=== PATIENT | female | born 1980 ===

== ENCOUNTER 2018-04-14 14:27 | Inpatient (IN) | payer OTHER ==
[2018-04-14] MEDS ORDERED: Albuterol-Ipratrop 3 mg / 0.5 (3 ml) UD ONE ×2 (14:35→15:16)
[2018-04-14] MEDS ORDERED: Albuterol-Ipratrop 3 mg / 0.5 (3 ml) UD INH STA (14:39)
[2018-04-14] MEDS ORDERED: Sodium Chloride 0.9% 1,000 ML IV ONE (14:41)
[2018-04-14] MEDS ORDERED: MethylPREDNISolone 40 mg Vial IVP STA (14:42)
--- NOTE | 2018-04-14 14:56 | C.PDOC ---
History Of Present Illness 37-year-old female, presents to the emergency department with complaints of cough, nasal, congestion, generalized body aches and wheezing since yesterday. Patient has a Hx of asthma and states he ran out of his medication. Denies nausea/vomiting, fever, chills, chest pain or shortness of breath. No other complaints at this time. Time Seen by Provider: 04/14/18 14:37 Chief Complaint (Nursing): Cough, Cold, Congestion History Per: Patient History/Exam Limitations: no limitations Current Symptoms Are (Timing): Still Present Past Medical History Reviewed: Historical Data, Nursing Documentation, Vital Signs Vital Signs: Last Vital Signs Temp 98.4 F 04/14/18 16:13 Pulse 103 H 04/14/18 16:13 Resp 18 04/14/18 16:13 BP 114/77 04/14/18 16:13 Pulse Ox 95 04/14/18 16:13 - Medical History PMH: Asthma Family History: States: No Known Family Hx - Social History Hx Tobacco Use: Yes Hx Alcohol Use: No Hx Substance Use: No - Immunization History Hx Tetanus Toxoid Vaccination: Yes Hx Influenza Vaccination: No Hx Pneumococcal Vaccination: No Review Of Systems Constitutional: Positive for: Malaise. Negative for: Fever, Chills ENT: Positive for: Nose Congestion Cardiovascular: Negative for: Chest Pain Respiratory: Positive for: Cough, Wheezing. Negative for: Shortness of Breath Gastrointestinal: Negative for: Nausea, Vomiting Musculoskeletal: Negative for: Back Pain Skin: Negative for: Rash Neurological: Negative for: Weakness, Numbness, Headache, Dizziness Physical Exam - Physical Exam Appears: Non-toxic, No Acute Distress Skin: Normal Color, Warm, Dry, No Rash Head: Normacephalic Eye(s): bilateral: PERRL Nose: Normal Oral Mucosa: Moist Lips: Normal Appearing Neck: Normal ROM Chest: Symmetrical Cardiovascular: Rhythm Regular, No Murmur Respiratory: Normal Breath Sounds, No Accessory Muscle Use Extremity: Normal ROM, No Deformity, No Swelling Neurological/Psych: Oriented x3, Normal Speech ED Course And Treatment - Laboratory Results Result Diagrams: 04/14/18 14:56 04/14/18 14:56 O2 Sat by Pulse Oximetry: 94 Pulse Ox Interpretation: Abnormal Progress Note: Bloodwork, Chest X-Ray and Influenza AB ordered and reviewed. Pt treated with Duonebs, Solumedrol and IVFs. Medical Decision Making Medical Decision Making: asthma- labs imging pendign, nebs steriods pt reassesed after iv steriods, persistent wheezing, accepted by dr robledo for admission. Disposition - Disposition Disposition: HOSPITALIZED Disposition Time: 02:00 Condition: STABLE - Clinical Impression Clinical Impression: Asthma - Scribe Statement The provider has reviewed the documentation as recorded by the Scribe (Ricci Graves) All medical record entries made by the Scribe were at my direction and personally dictated by me. I have reviewed the chart and agree that the record accurately reflects my personal performance of the history, physical exam, medical decision making, and the department course for this patient. I have also personally directed, reviewed, and agree with the discharge instructions and disposition. Decision To Admit - Pt Status Changed To: Hospital Disposition Of: Inpatient - Admit Certification Admit to Inpatient:: After my assessment, the patient will require hospitalization for at least two midnights. This is because of the severity of symptoms shown, intensity of services needed, and/or the medical risk in this patient being treated as an outpatient. - InPatient: Physician Admission Certification: I certify that this patient requires 2 or more midnights of care for the following reason:: needs iv steriods - . Bed Request Type: Regular Admitting Physician: Bella Vazquez Patient Diagnosis: Asthma
[2018-04-14 15:00] LABS: BASO # 0.1 K/uL (0.0-0.2); BASO % 0.7 % (0.0-2.0); EOS # 0.4 K/uL (0.0-0.7); EOS % 4.2 % (0.0-4.0); HEMOGLOBIN 13.4 g/dL (11.0-16.0); LYMPH # 1.9 K/uL (1.0-4.3); LYMPH % 18.1 % (20.0-40.0); MEAN CELL VOLUME 93.2 fL (81.0-99.0); MEAN CORPUSCULAR HEMOGLOBIN 32.3 pg (27.0-31.0); MEAN CORPUSCULAR HGB CONC 34.7 g/dL (33.0-37.0); MEAN PLATELET VOLUME 7.2 fL (7.2-11.7); MONO # 0.9 K/uL (0.0-0.8); MONO % 8.3 % (0.0-10.0); NEUT # 7.2 K/uL (1.8-7.0); NEUT % 68.7 % (50.0-75.0); RBC 4.14 Mil/uL (3.80-5.20); WHITE BLOOD COUNT 10.4 K/uL (4.8-10.8)
[2018-04-14 15:11] LABS: INR 1.1; PROTHROMBIN TIME 11.8 SECONDS (9.7-12.2)
[2018-04-14 15:12] LABS: ALB/GLOB RATIO 1.2 (1.0-2.1); ALBUMIN 3.9 g/dL (3.5-5.0); ALT/SGPT 103 U/L (9-52); AST/SGOT 56 U/L (14-36); BLOOD UREA NITROGEN 9 mg/dL (7-17); CALCIUM 8.9 mg/dl (8.6-10.4); GFR AFRICAN-AMERICAN > 60; GFR NON-AFRICAN AMERICAN > 60
[2018-04-14] MEDS: Albuterol-Ipratrop 3 mg / 0.5 (3 ml) UD IH SCH ×2 (15:15→15:30)
[2018-04-14 15:41] LABS: SQUAMOUS EPITHIAL 1 /hpf (0-5); URINE BILIRUBIN NEGATIVE (NEGATIVE); URINE BLOOD NEGATIVE (NEGATIVE); URINE CLARITY Clear (Clear); URINE COLOR Yellow (YELLOW); URINE GLUCOSE (UA) NORMAL (Normal); URINE LEUKOCYTE ESTERASE NEG Leu/uL (Negative); URINE PROTEIN NEGATIVE (NEGATIVE); URINE UROBILINOGEN NORMAL mg/dL (0.2-1.0)
[2018-04-14 15:45] LABS: HCG,QUALITATIVE URINE NEGATIVE (NEGATIVE)
[2018-04-14] MEDS ORDERED: cefTRIAXone IV 1 gm in Dextros 50 ML IVPB ONE ×2 (15:49→16:07)
[2018-04-14] MEDS ORDERED: Azithromycin 500 MG in Sodium Chloride 0.9% 250 ML IVPB STA (15:50)
--- NOTE | 2018-04-14 16:47 | RAD ---
PROCEDURE: CHEST RADIOGRAPH, 1 VIEW HISTORY: SOB COMPARISON: 01/04/2017 FINDINGS: LUNGS: Clear. PLEURA: No pneumothorax or pleural fluid seen. CARDIOVASCULAR: Normal. OSSEOUS STRUCTURES: No significant abnormalities. VISUALIZED UPPER ABDOMEN: Normal. OTHER FINDINGS: None. IMPRESSION: No active disease. No acute/significant interval changes.
[2018-04-14] MEDS ORDERED: guaiFENesin DM 200 mg-20 mg/10 ml UD PO PRN (19:39)
[2018-04-14] MEDS: MethylPREDNISolone 40 mg Vial IVP SCH (20:02)
[2018-04-15 00:03] VITALS: RESP 20
[2018-04-15] MEDS: Albuterol-Ipratrop 3 mg / 0.5 (3 ml) UD INH SCH ×3 (01:30→14:09)
[2018-04-15] MEDS: MethylPREDNISolone 40 mg Vial IVP SCH ×2 (03:48→10:52)
[2018-04-15 06:28] LABS: URINE BILIRUBIN NEGATIVE (NEGATIVE); URINE BLOOD NEGATIVE (NEGATIVE); URINE CLARITY Clear (Clear); URINE COLOR Straw (YELLOW); URINE GLUCOSE (UA) 3+ mg/dL (Normal); URINE LEUKOCYTE ESTERASE NEG Leu/uL (Negative); URINE PROTEIN NEGATIVE (NEGATIVE); URINE UROBILINOGEN NORMAL mg/dL (0.2-1.0)
[2018-04-15 08:16] LABS: BASO % 0.1 % (0.0-2.0); HEMOGLOBIN 13.5 g/dL (11.0-16.0); LYMPH # 1.1 K/uL (1.0-4.3); LYMPH % 9.6 % (20.0-40.0); MEAN CELL VOLUME 94.3 fL (81.0-99.0); MEAN PLATELET VOLUME 7.7 fL (7.2-11.7); MONO # 0.2 K/uL (0.0-0.8); MONO % 1.6 % (0.0-10.0); NEUT # 10.1 K/uL (1.8-7.0); NEUT % 88.7 % (50.0-75.0); PLATELET COUNT 276 K/uL (130-400); RBC 4.22 Mil/uL (3.80-5.20); RED CELL DISTRIBUTION WIDTH 12.9 % (11.5-14.5); WHITE BLOOD COUNT 11.4 K/uL (4.8-10.8)
[2018-04-15 08:37] VITALS: BP 142/77; PULSE 85; TEMP 97.6; O2SAT 95
[2018-04-15 09:05] LABS: ALB/GLOB RATIO 1.2 (1.0-2.1); ALT/SGPT 93 U/L (9-52); AST/SGOT 44 U/L (14-36); BLOOD UREA NITROGEN 11 mg/dL (7-17); CALCIUM 9.3 mg/dl (8.6-10.4); GFR AFRICAN-AMERICAN > 60; GFR NON-AFRICAN AMERICAN > 60; HDL CHOLESTEROL 50 mg/dL (30-70)
[2018-04-15 09:08] LABS: LEGIONELLA AG URINE NEGATIVE (NEGATIVE)
[2018-04-15 09:10] LABS: LDL CHOLESTEROL 178 mg/dL (0-129)
[2018-04-15 10:22] LABS: BANDS 1 % (0-2); LYMPHOCYTE 11 % (20-40); MONOCYTE 2 % (0-10); NEUTROPHIL 86 % (50-75); PLATELET ESTIMATE NORMAL (NORMAL); TOTAL CELLS COUNTED 100
--- NOTE | 2018-04-15 11:43 | CP.PCM.PN ---
Subjective - Date & Time of Evaluation Date of Evaluation: 04/15/18 Time of Evaluation: 11:45 Objective - Vital Signs/Intake and Output Vital Signs (last 24 hours): Temp Pulse Resp BP Pulse Ox 97.6 F 85 20 142/77 95 04/15/18 08:32 04/15/18 08:32 04/15/18 08:32 04/15/18 08:32 04/15/18 08:32 Intake and Output: 04/15/18 04/15/18 06:59 18:59 Intake Total 150 210 Balance 150 210 - Medications Medications: Current Medications Albuterol/Ipratropium (Duoneb 3 Mg/0.5 Mg (3 Ml) Ud) 3 ml INH RQ6 [facility] Last Admin: 04/15/18 07:25 Dose: 3 ml Famotidine (Pepcid) 20 mg PO DAILY [facility] Last Admin: 04/15/18 09:06 Dose: 20 mg Guaifenesin/Dextromethorphan (Robitussin Dm) 10 ml PO Q4H PRN PRN Reason: Cough and congestion Methylprednisolone (Solu-Medrol) 40 mg IVP Q8H [facility] Last Admin: 04/15/18 10:52 Dose: 40 mg Montelukast Sodium (Singulair) 10 mg PO HS [facility] Last Admin: 04/14/18 21:19 Dose: 10 mg Pneumococcal Polyvalent Vaccine (Pneumovax 23 Vaccine) 0.5 ml IM .ONCE ONE Stop: 04/17/18 10:01 - Labs Labs: 04/15/18 08:05 04/15/18 08:05 PT 11.8 SECONDS (9.7-12.2) 04/14/18 14:56 INR 1.1 04/14/18 14:56 APTT 33 SECONDS (21-34) 04/14/18 14:56
[2018-04-15] MEDS ORDERED: Pneumococcal 23-Valent Vaccine IM ONE (15:00)
--- NOTE | 2018-04-15 22:16 | HP ---
CHIEF COMPLAINT: Progressive worsening of shortness of breath, cough with chest tightness and pleuritic chest pain for the past two days. HISTORY OF PRESENT ILLNESS: Ms. Astudillo is a 37-year-old female with past medical history of asthma, hyperlipidemia, never intubated, not steroid dependent, did not have any prior hospitalizations. Her asthma is mainly from the seasonal allergies for which she takes intermittent nebulizer treatment and Singulair as needed, came into the emergency room with complaints of cold, cough, chest congestion, generalized body aches and wheezing. Not able to breathe for the past two days. As per the patient, she was in her usual state of health on , but she slept night opening the doors and with the fan on and Monday morning she woke up with nasal congestion, dry cough and started to wheeze and experiencing shortness of breath. 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 Monday, she started having worsening of the symptoms and not able to breathe as usual despite the medications and she came into the emergency room. In the emergency room, the patient was found to be having chest tightness and wheezing and the patient was given nebulizer treatment, steroids and the patient is being admitted for further evaluation and management of her asthma. When I examined the patient, she is feeling much better. Denies any headaches or dizziness. Denies any chest pain. Complaining of shortness of breath, better than when she came in. Denies any nausea, vomiting, abdominal pain, diarrhea or constipation. Denies any urinary complaints. Denies any leg pains or leg cramps. Denies any other neurologic symptoms. PAST MEDICAL HISTORY: Asthma and hyperlipidemia. PAST SURGICAL HISTORY: Denies any past surgical history. FAMILY HISTORY: Hyperlipidemia in the mother. 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 SOCIAL HISTORY: Smokes less than 10 cigarettes per day. Denies any alcohol or drug abuse. ALLERGIES: ALLERGIC TO AMOXICILLIN, DEVELOPED YEAST INFECTION. HOME MEDICATIONS: Ventolin, Singulair. REVIEW OF SYSTEMS: As described in history of present illness, all other systems reviewed and were found to be negative. PHYSICAL EXAMINATION: GENERAL: Young, obese female, lying in bed, in no acute distress. VITAL SIGNS: Blood pressure 125/75, pulse 93, respiration 20, temperature 97.8 degrees Fahrenheit, O2 saturation 97% on room air. HEENT: Pupils equal, round, and reacting to light and accommodation. Extraocular muscles intact. No icterus. No pallor. No oral thrush. No pharyngeal congestion. NECK: Supple. No JVD. LUNGS: Bilateral vesicular breath sounds. No wheezing, no rhonchi. CVS: S1, S2 present. Regular. ABDOMEN: Soft, nontender. Bowel sounds present. No guarding. No rigidity. No rebound tenderness noted. INTELLIGENCE AGENT: Alert, awake, and oriented x3. No focal deficits noted. EXTREMITIES: No edema. Palpable peripheral pulses. LABORATORY DATA: Labs done from ED; WBC 10.4, hemoglobin 13.4, hematocrit 38.6, and platelets 254. PT 11.8, INR 1.1, PTT 33, sodium 141, potassium 3.5, chloride 105, bicarb 27, BUN 9, creatinine 0.6, glucose 102, calcium 8.9, AST 56, ALT 103, alkaline phosphatase 61. Total protein 7.1, albumin 3.9. UA negative. Influenza A negative. Chest x-ray negative for any infiltrate. ASSESSMENT: with history of asthma, never intubated, not steroid dependent, gets asthma symptoms during seasonal allergies, was referred to pressroom worker by her PMD Dr. Chaka Alford. Uses Singulair and Keysha as needed, came into the ED with progressive worsening of shortness of breath and cold, cough, chest congestion for the past two days. In the ED, the patient was found to be having wheezing and chest tightness and the patient is being admitted for further management. 1. Acute asthma exacerbation. 2. Acute bronchitis. 3. History of hyperlipidemia. PLAN: The patient is being admitted, will get nebulizer treatments, bronchodilators, Solu-Medrol IV, peak flows before and after treatments. We will add further recommendations as her clinical course progresses. Bella Vazquez MD [facility] # [id number]
[2018-04-16 18:55] LABS: MYCOPLASMA PNEUMONIAE IGM POSITIVE (NEGATIVE)
[2018-04-17] MEDS ORDERED: Pneumococcal 23-Valent Vaccine IM ONE (10:00)
== END 2018-04-15 14:48 | disposition home or self-care (01) | DRG 97 ==
LOC: C.ER 14:27 → C.9E 15:50 → C.3T 16:08
PROVIDERS: ADMIT Internal Medicine; ATTEND Internal Medicine
DX: J45.901 Unspecified asthma with (acute) exacerbation (principal); J20.9 Acute bronchitis, unspecified; E78.5 Hyperlipidemia, unspecified; F17.210 Nicotine dependence, cigarettes, uncomplicated